=== PATIENT | male | born 2005 | race Caucasian/White ===

== ENCOUNTER 2025-03-13 08:58 | Emergency (ER) | payer OTHER ==
[~2025-03-13] VITALS: Ht 180.3 cm; Wt 87.9 kg
[2025-03-13] MEDS: NS (Normal Saline) 0.9% 1,000 ML IV ONE (09:42)
[2025-03-13] MEDS: PANTOPRAZOLE 40MG VIAL IV ONE (09:43)
[2025-03-13 09:59] LABS: BASO # 0.0 10^3/uL (0.0-0.2); BASO % 0.4 % (0.0-1.0); EOS # 0.1 10^3/uL (0.0-0.5); EOS % 1.1 % (0.0-3.0); LYMPH # 1.7 10^3/uL (1.5-5.0); LYMPH % 17.1 % (24.0-44.0); MONO # 0.8 10^3/uL (0.0-0.8); MONO % 7.8 % (2.0-8.0); NEUTROPHILS # 7.2 10^3/uL (1.5-8.5); NEUTROPHILS % 73.3 % (36.0-66.0); PLATELET COUNT, AUTOMATED 211 10^3/uL (150-450)
[2025-03-13 10:00] VITALS: BP 120/70; TEMP 98; O2SAT 100
[2025-03-13 10:12] LABS: INR 1.1
[2025-03-13 10:21] LABS: ALT/SGPT 18 U/L (7.0-40); AST/SGOT 22 U/L (<34); CALCIUM LEVEL 9.6 MG/DL (8.5-10.1); CARBON DIOXIDE LEVEL 32 MMOL/L (20-31); CHLORIDE LEVEL 104 MMOL/L (98-107); CREATININE FOR GFR 0.90 MG/DL (0.70-1.30); GLOMERULAR FILTRATION RATE > 90.0 (>60); POTASSIUM SERUM 4.4 MMOL/L (3.5-5.1); SODIUM LEVEL 143 MMOL/L (136-145)
== END 2025-03-13 10:32 | disposition left against medical advice (07) ==
LOC: M ED 08:58
DX: R04.2 Hemoptysis (principal); K92.0 Hematemesis; F17.200 Nicotine dependence, unspecified, uncomplicated; Z53.9 Procedure and treatment not carried out, unspecified reason
CPT/HCPCS: 80048; 80076; 83690; 85025; 85610; 85730; 96361; 96374; 99284; J2470

== ENCOUNTER 2025-03-14 07:55 | Emergency (ER) | payer OTHER ==
[~2025-03-14] VITALS: Ht 180.3 cm; Wt 87.9 kg
[2025-03-14 10:28] VITALS: TEMP 97.3
[2025-03-14 10:29] VITALS: BP 126/66; O2SAT 100
[2025-03-14] MEDS ORDERED: ISOVUE-370 76% 100 ML VIAL As Ordered ONE (10:34)
== END 2025-03-14 12:30 | disposition home or self-care (01) ==
LOC: M ED 07:55
DX: R04.2 Hemoptysis (principal); R91.1 Solitary pulmonary nodule
CPT/HCPCS: 71275; 87486; 87581; 87633; 87798; 99284; Q9967